=== PATIENT | male | born 1970 | race Caucasian/White ===

== ENCOUNTER 2018-06-27 09:39 | Outpatient (CLI) | payer OTHER ==
--- NOTE | 2018-06-30 08:36 | Ultrasound Report ---
ULTRASOUND ABDOMEN COMPLETE: TECHNIQUE: Transabdominal ultrasound with color Doppler interrogation. HISTORY: Polycystic kidneys. COMPARISON: none. FINDINGS: LIVER: Within normal limits. No parenchymal disease, focal mass or cystic disease. BILIARY SYSTEM: Trace sludge is suspected in the gallbladder. No shadowing gallstones, wall thickening or surrounding fluid. The CBD measures 5 mm. PANCREAS: Only the proximal pancreas is visualized which is unremarkable. SPLEEN: Within normal limits. 10.4 cm in length. KIDNEYS: Both kidneys are markedly enlarged with innumerable small and large renal cysts. Both kidneys measure approximately 20 cm in length. There is no obvious hypervascular solid renal mass. A few of the cysts contain debris consistent with hemorrhagic change. No evidence for hydronephrosis or perinephric fluid. The bladder was not imaged. AORTA/IVC: Within normal limits. ASCITES: None. IMPRESSION: Enlarged kidneys with innumerable bilateral simple and complex cysts. These findings suggest autosomal dominant polycystic kidney disease. No obvious obstruction, solid mass or perinephric fluid. Trace sludge in the gallbladder.
== END 2018-06-27 09:40 | disposition home or self-care (01) ==
LOC: US 09:39
PROVIDERS: ATTEND Family Medicine
DX: N28.1 Cyst of kidney, acquired (principal)
CPT/HCPCS: 76700